=== PATIENT | male | born 1960 | race African-American/Black ===

== ENCOUNTER 2020-01-24 18:43 | Emergency (ER) | payer MEDICAID ==
[~2020-01-24] VITALS: Ht 170.2 cm; Wt 77.5 kg
[~2020-01-24 18:43] MED LIST: ALBU18HF INH; EFAV1TAB PO; GABA800T5 PO; OXYC-307 PO; PROP20TA PO; SILD25TA PO
[2020-01-24] MEDS ORDERED: ALBUTEROL 0.5%, 20ML NPPB SCH (19:30)
[2020-01-24 19:52] LABS: BASOPHILS # (AUTO) 0.07 x10^3/uL (0-0.1); BASOPHILS % (AUTO) 1 % (0-1); EOSINOPHILS # (AUTO) 0.29 x10^3/uL (0-0.4); EOSINOPHILS % (AUTO) 4 % (1-7); LYMPHOCYTES # (AUTO) 2.26 x10^3/uL (1-3.4); LYMPHOCYTES % (AUTO) 32 % (22-44); MD NO; MEAN CORPUSCULAR HGB CONC 32.7 g/dL (33.2-36.2); MEAN CORPUSCULAR VOLUME 91.5 fL (81-97); MEAN PLATELET VOLUME 8.1 fL (7.4-10.4); MONOCYTES % (AUTO) 8 % (2-9); NEUTROPHILS # (AUTO) 3.94 x10^3/uL (1.8-6.8); NEUTROPHILS % (AUTO) 55 % (42-75); PLATELET COUNT 199 x10^3/uL (130-400); RED BLOOD COUNT 5.23 x10^6/uL (4.38-5.82); RED CELL DISTRIBUTION WIDTH 14.9 % (9.4-14.8)
[2020-01-24 20:01] LABS: ALBUMIN 3.7 g/dL (3.4-5.0); ANION GAP 8 mmol/L (5-15); CALCIUM 9.4 mg/dL (8.5-10.1); CHLORIDE 109 mmol/L (98-107)
[2020-01-24 20:06] LABS: ALANINE AMINOTRANSFERASE 100 U/L (12-78); ALKALINE PHOSPHATASE 64 U/L (45-117); BILIRUBIN,TOTAL 0.7 mg/dL (0.2-1.0); CREATININE 1.31 mg/dL (0.7-1.3); TOTAL PROTEIN 7.6 g/dL (6.4-8.2); TROPONIN I < 0.015 ng/mL (0.000-0.045)
[2020-01-24 20:40] VITALS: BP 126/56
[2020-01-24] MEDS ORDERED: ALBUTEROL/IPRATROPIUM 2.5MG/0.5MG, 3 ML ONE (20:43)
[2020-01-24] MEDS ORDERED: POTASSIUM CHLORIDE 20 MEQ TAB.ER.PRT ONE (20:48)
[2020-01-24] MEDS ORDERED: ALBUTEROL SULFATE 2.5 MG/3 ML NPPB ONE (21:00)
[2020-01-24] MEDS ORDERED: POTASSIUM CHLORIDE 20 MEQ TAB.ER.PRT PO ONE (21:00)
[2020-01-24] MEDS ORDERED: IPRATROPIUM 0.5 MG/2.5 ML INHA NPPB ONE (21:00)
== END 2020-01-24 21:30 | disposition home or self-care (01) ==
LOC: ED 21:28
DX: J45.41 Moderate persistent asthma with (acute) exacerbation (principal); R00.0 Tachycardia, unspecified; R06.02 Shortness of breath; Z21 Asymptomatic human immunodeficiency virus [HIV] infection status; Z87.891 Personal history of nicotine dependence
CPT/HCPCS: 36415; 71045; 80053; 83880; 84484; 85025; 93005; 94640; 99285; J7512; J7613; J7644

== ENCOUNTER 2020-01-27 09:17 | Emergency (ER) | payer MEDICAID ==
[~2020-01-27] VITALS: Ht 170.2 cm; Wt 76.8 kg
[2020-01-27] MEDS ORDERED: ALBUTEROL/IPRATROPIUM 2.5MG/0.5MG, 3 ML ONE ×2 (09:51→10:58)
[2020-01-27] MEDS ORDERED: ALBUTEROL/IPRATROPIUM 2.5MG/0.5MG, 3 ML NPPB ONE ×2 (10:00→11:00)
--- NOTE | 2020-01-27 10:02 | NUR ---
PT STATES ASTHMA EXACERBATION, HX OF SAME. PT IN RESPIR DISTRESS, SPEAKING IN FULL SENTANCES, PROTECTING OWN AIRWAY WELL. BREATHING TX INITIATED, PT EDUCATED ON BREATHING TX USE, DEMONSTARTED PROPER USE. PT PLACED ON MONITORS, VSS. CONT TO MONITOR.
[2020-01-27 10:16] LABS: MEAN CORPUSCULAR HEMOGLOBIN 30.6 pg (27.5-34.5); MEAN CORPUSCULAR HGB CONC 33.3 g/dL (33.2-36.2); MEAN CORPUSCULAR VOLUME 91.9 fL (81-97); MEAN PLATELET VOLUME 8.3 fL (7.4-10.4); PLATELET COUNT 221 x10^3/uL (130-400); RED BLOOD COUNT 5.26 x10^6/uL (4.38-5.82); RED CELL DISTRIBUTION WIDTH 14.8 % (9.4-14.8)
[2020-01-27 10:22] LABS: ALBUMIN 3.3 g/dL (3.4-5.0); ANION GAP 8 mmol/L (5-15); CALCIUM 8.9 mg/dL (8.5-10.1); CHLORIDE 109 mmol/L (98-107); CREATININE 1.15 mg/dL (0.7-1.3)
[2020-01-27 10:25] LABS: TROPONIN I < 0.015 ng/mL (0.000-0.045)
[2020-01-27 10:46] LABS: BASOPHILS # (AUTO) 0.03 x10^3/uL (0-0.1); BASOPHILS % (AUTO) 0 % (0-1); EOSINOPHILS # (AUTO) 0.01 x10^3/uL (0-0.4); EOSINOPHILS % (AUTO) 0 % (1-7); LYMPHOCYTES % (AUTO) 15 % (22-44); MD SCAN; MONOCYTES # (AUTO) 0.39 x10^3/uL (0.2-0.8); MONOCYTES % (AUTO) 4 % (2-9); NEUTROPHILS # (AUTO) 7.69 x10^3/uL (1.8-6.8); NEUTROPHILS % (AUTO) 81 % (42-75)
[2020-01-27 10:53] VITALS: BP 138/74
--- NOTE | 2020-01-27 10:53 | NUR ---
PT STATES BREATHING TX EFFECTIVE, STATES HE "FEELS BETTER." PT REMAINS ON MONITORS, VSS. CONT TO MONITOR.
== END 2020-01-27 11:35 | disposition home or self-care (01) ==
LOC: ED 10:09
DX: J43.9 Emphysema, unspecified (principal); R94.31 Abnormal electrocardiogram [ECG] [EKG]; Z87.891 Personal history of nicotine dependence; Z21 Asymptomatic human immunodeficiency virus [HIV] infection status
CPT/HCPCS: 36415; 71045; 80048; 82040; 84484; 85025; 93005; 94640; 99285

== ENCOUNTER 2020-02-05 18:45 | Emergency (ER) | payer MEDICAID ==
[~2020-02-05] VITALS: Ht 180.3 cm; Wt 77.3 kg
--- NOTE | 2020-02-05 19:10 | NUR ---
FIRST CONTACT [facility] PT. PT SITTING UP IN GURNEY, TRIPOD POSITIONING WITH INCREASED RATE AND WORK OF BREATHING. PT SPEAKING IN ~5 WORD SENTENCES WITH FORCED RESPIRATIONS. PT REPORTS ONSET OF SOB TODAY WHILE AT WORK, "I HAVE ASTHMA AND I WORK IN A [employer]". PT DENIES FEVER/CHEST PAIN/EDEMA. REPORTS RECENT ADMIT AT [facility] S/S. BP/SPO2/ECG MONTIORING IN PLACE. SINUS TACH ON MONITOR. IV ESTBALISHED, LABS DRAWN. ERP AT BEDSIDE FOR INITIAL ASSESSMENT.
[2020-02-05] MEDS ORDERED: methylPREDNISolone SOD SUCC 125 MG/2 ML ONE (19:18)
--- NOTE | 2020-02-05 19:25 | NUR ---
PT MEDICATED PER EMAR
[2020-02-05] MEDS ORDERED: ALBUTEROL/IPRATROPIUM 2.5MG/0.5MG, 3 ML ONE (19:29)
[2020-02-05] MEDS ORDERED: methylPREDNISolone SOD SUCC 125 MG/2 ML IM ONE (19:30)
[2020-02-05] MEDS ORDERED: ALBUTEROL/IPRATROPIUM 2.5MG/0.5MG, 3 ML NPPB ONE (19:30)
[2020-02-05 19:31] LABS: BASOPHILS % (AUTO) 1 % (0-1); EOSINOPHILS # (AUTO) 0.42 x10^3/uL (0-0.4); EOSINOPHILS % (AUTO) 6 % (1-7); LYMPHOCYTES # (AUTO) 2.41 x10^3/uL (1-3.4); LYMPHOCYTES % (AUTO) 32 % (22-44); MD NO; MEAN CORPUSCULAR HEMOGLOBIN 30.4 pg (27.5-34.5); MEAN CORPUSCULAR HGB CONC 33.5 g/dL (33.2-36.2); MEAN CORPUSCULAR VOLUME 90.9 fL (81-97); MEAN PLATELET VOLUME 8.2 fL (7.4-10.4); MONOCYTES # (AUTO) 0.46 x10^3/uL (0.2-0.8); MONOCYTES % (AUTO) 6 % (2-9); NEUTROPHILS % (AUTO) 55 % (42-75); PLATELET COUNT 186 x10^3/uL (130-400)
[2020-02-05 19:59] VITALS: BP 121/88
--- NOTE | 2020-02-05 19:59 | NUR ---
PT RELAXED IN GURNEY, EVEN/REGULAR RESPIRATIONS NOTED.PT REPORTS SIGNIFICANT IMPROVEMENT IN SOB/WOB WITH RX & NEB. RR 18-22, SPO2 >90% ON RA.
--- NOTE | 2020-02-05 20:17 | NUR ---
OKAY TO DC PRIOR TO BMP RESULTING PER ERP. DC EDUCATION PROVIDED, PT DEMONSTRATES UNDERSTANDING. PT AMBULATED STEADILY TO DC WITH RN.
[2020-02-05 20:18] LABS: ANION GAP 5 mmol/L (5-15); CHLORIDE 107 mmol/L (98-107); CREATININE 1.71 mg/dL (0.7-1.3)
--- NOTE | 2020-02-05 20:19 | NUR ---
Teodora dixon in [facility] - 02/05/20 at 2019 by JOSÉ REPORT TO DINORAH NUÑEZ WHO ASSUMED CARE OF PT.
== END 2020-02-05 20:19 | disposition home or self-care (01) ==
LOC: ED 20:10
DX: J45.901 Unspecified asthma with (acute) exacerbation (principal); R00.0 Tachycardia, unspecified; I51.7 Cardiomegaly; R94.31 Abnormal electrocardiogram [ECG] [EKG]
CPT/HCPCS: 36415; 71045; 80048; 85025; 93005; 94640; 96372; 99285; J2930

== ENCOUNTER 2020-03-19 16:27 | Inpatient (IN) | payer MEDICAID ==
[~2020-03-19] VITALS: Ht 170.2 cm; Wt 72.1 kg
--- NOTE | 2020-03-19 17:00 | NUR ---
Assumed care of patient. Seen at PCP and told he had a blood clot in his aorta and needed to go straight to ED. NAD. Denies complaints in ED. Will continue to monitor.
[2020-03-19] MEDS ORDERED: SODIUM CHLORIDE FLUSH 10ML SYR IVF ONE (17:30)
[2020-03-19 17:31] LABS: BASOPHILS # (AUTO) 0.03 x10^3/uL (0-0.1); BASOPHILS % (AUTO) 1 % (0-1); EOSINOPHILS # (AUTO) 0.18 x10^3/uL (0-0.4); EOSINOPHILS % (AUTO) 4 % (1-7); LYMPHOCYTES # (AUTO) 2.22 x10^3/uL (1-3.4); LYMPHOCYTES % (AUTO) 44 % (22-44); MD NO; MEAN CORPUSCULAR HEMOGLOBIN 29.8 pg (27.5-34.5); MEAN CORPUSCULAR HGB CONC 32.4 g/dL (33.2-36.2); MEAN PLATELET VOLUME 8.1 fL (7.4-10.4); MONOCYTES # (AUTO) 0.37 x10^3/uL (0.2-0.8); MONOCYTES % (AUTO) 7 % (2-9); NEUTROPHILS % (AUTO) 45 % (42-75); PLATELET COUNT 222 x10^3/uL (130-400); RED BLOOD COUNT 5.43 x10^6/uL (4.38-5.82); RED CELL DISTRIBUTION WIDTH 15.2 % (9.4-14.8)
[2020-03-19 17:37] LABS: PROTHROMBIN TIME 10.6 Seconds (9.6-11.5)
[2020-03-19 17:42] LABS: ALBUMIN 3.5 g/dL (3.4-5.0); ANION GAP 7 mmol/L (5-15); CALCIUM 8.7 mg/dL (8.5-10.1); CHLORIDE 109 mmol/L (98-107)
[2020-03-19 17:46] LABS: ALANINE AMINOTRANSFERASE 77 U/L (12-78); ALKALINE PHOSPHATASE 65 U/L (45-117); BILIRUBIN,TOTAL 0.8 mg/dL (0.2-1.0); CREATININE 1.23 mg/dL (0.7-1.3); TOTAL PROTEIN 6.9 g/dL (6.4-8.2)
[2020-03-19] MEDS ORDERED: BICT1TAB PO (17:49)
--- NOTE | 2020-03-19 17:50 | NUR ---
IV started. VSS. Plan is for admit. No needs.
[2020-03-19] MEDS ORDERED: HEPARIN 25,000 UNITS/250ML PMX 250 ML IV PRN (18:30)
[2020-03-19] MEDS ORDERED: HEPARIN 5,000 UNITS/ML, 1ML IV PRN ×2 (18:30→19:00)
[2020-03-19] MEDS ORDERED: SODIUM CHLORIDE FLUSH 10ML SYR IVF PRN (18:30)
[2020-03-19] MEDS ORDERED: HEPARIN 5,000 UNITS/ML, 1ML IV ONE ×2 (18:30→19:00)
[2020-03-19] MEDS: HEPARIN 25,000 UNITS/250ML PMX 250 ML IV PRN (18:44)
--- NOTE | 2020-03-19 18:50 | NUR ---
Boaz kinney. Verified with Shane Kaiser RN. No other needs.
--- NOTE | 2020-03-19 19:15 | NUR ---
Karyn Narvaez APRN at bedside.
[2020-03-19] MEDS ORDERED: POLYETHYLENE GLYCOL 17 GM PACKET PO PRN (19:30)
[2020-03-19] MEDS ORDERED: ALBUTEROL HFA 90 MCG/SPRAY INH PRN (19:30)
[2020-03-19] MEDS ORDERED: ACETAMINOPHEN 325 MG TABLET PO PRN (19:30)
[2020-03-19] MEDS ORDERED: MELATONIN 5 MG TABLET PO PRN (19:30)
[2020-03-19] MEDS ORDERED: DIPHENHYDRAMINE 25 MG CAPSULE PO PRN (19:30)
[2020-03-19] MEDS ORDERED: BISACODYL 10 MG SUPP PR PRN (19:30)
[2020-03-19] MEDS ORDERED: hydrALAzine 20 MG/ML, 1ML IVPush PRN (19:30)
[2020-03-19] MEDS ORDERED: ONDANSETRON 2MG/ML, 2ML IVPush PRN (19:30)
[2020-03-19] MEDS ORDERED: morphine SULFATE 10 MG/ML, 1ML IVPush PRN (19:30)
[2020-03-19] MEDS ORDERED: LORazepam 2 MG/ML, 1ML IVPush PRN (19:30)
--- NOTE | 2020-03-19 19:35 | NUR ---
Provided with meal tray. No other needs.
[2020-03-19] MEDS ORDERED: NICOTINE 7 MG/24 HR PATCH.TD24 ONE (19:41)
[2020-03-19] MEDS: NICOTINE 7 MG/24 HR PATCH.TD24 TD SCH (19:43)
--- NOTE | 2020-03-19 20:20 | NUR ---
RN spoke to Karyn Narvaez APRN regarding anti Xa critical value. Since anti-Xa was drawn 1 hours after heparin was hung, she recommended checking with pharmacy. RN called pharmacy who expressed concern over the fact that he had an active clot in his aorta. Pharmacy to call Karyn.
--- NOTE | 2020-03-19 20:26 | NUR ---
Jake from pharmacy spoke to Karyn and they decided to make no changes to the heparin drip at this time. Karyn to put in order for anti-xa to be drawn at 2230 and RN will adjust heparin according at that time.
--- NOTE | 2020-03-19 20:34 | NUR ---
Attempted report. RN unavailable.
--- NOTE | 2020-03-19 20:41 | NUR ---
Report to DINORAH Blanco.
[2020-03-19] MEDS ORDERED: POTASSIUM CHLORIDE 20 MEQ TAB.ER.PRT PO ONE (21:00)
[2020-03-19 21:36] VITALS: BP 135/76
[2020-03-19 21:47] VITALS: BP 135/76
[2020-03-20 00:59] VITALS: BP 132/89
[2020-03-20 07:18] VITALS: BP 116/75
[2020-03-20 07:44] LABS: MEAN CORPUSCULAR HEMOGLOBIN 29.9 pg (27.5-34.5); MEAN CORPUSCULAR HGB CONC 32.4 g/dL (33.2-36.2); MEAN CORPUSCULAR VOLUME 92.3 fL (81-97); MEAN PLATELET VOLUME 8.6 fL (7.4-10.4); PLATELET COUNT 184 x10^3/uL (130-400); RED BLOOD COUNT 5.56 x10^6/uL (4.38-5.82); RED CELL DISTRIBUTION WIDTH 15.4 % (9.4-14.8)
[2020-03-20 07:52] LABS: ANION GAP 5 mmol/L (5-15); CALCIUM 8.8 mg/dL (8.5-10.1); CHLORIDE 111 mmol/L (98-107)
[2020-03-20 07:57] LABS: CHOL/HDL RATIO 3.3; CHOLESTEROL, TOTAL 197 mg/dL (140-239); HDL CHOL % 30 % (26-37); HDL CHOLESTEROL (DIRECT) 59 mg/dL (40-60); LDL CHOLESTEROL,CALCULATED 118 mg/dL (54-169); TRIGLYCERIDES 101 mg/dL (50-200); VLDL CHOLESTEROL 20 mg/dL (0-25)
[2020-03-20 08:32] LABS: BASOPHILS # (AUTO) 0.04 x10^3/uL (0-0.1); BASOPHILS % (AUTO) 1 % (0-1); EOSINOPHILS # (AUTO) 0.23 x10^3/uL (0-0.4); EOSINOPHILS % (AUTO) 6 % (1-7); LYMPHOCYTES # (AUTO) 1.95 x10^3/uL (1-3.4); LYMPHOCYTES % (AUTO) 50 % (22-44); MD SCAN; MONOCYTES # (AUTO) 0.33 x10^3/uL (0.2-0.8); MONOCYTES % (AUTO) 9 % (2-9); NEUTROPHILS # (AUTO) 1.38 x10^3/uL (1.8-6.8); NEUTROPHILS % (AUTO) 35 % (42-75)
[2020-03-20] MEDS: BICTEGRAV/EMTRICIT/TENOFOV ALA TAB PO SCH (08:32)
[2020-03-20] MEDS: SENNA/DOCUSATE TABLET PO SCH (08:32)
[2020-03-20 10:45] LABS: INTERNATIONAL NORMALIZED RATIO 0.99 (0.93-1.1); PROTHROMBIN TIME 10.5 Seconds (9.6-11.5)
[2020-03-20 12:31] VITALS: BP 131/83
[2020-03-20] MEDS: WARFARIN 5 MG TABLET PO-COUM SCH (17:17)
[2020-03-20] MEDS ORDERED: WARFARIN 5 MG TABLET PO-COUM SCH (18:00)
[2020-03-20 18:22] LABS: ANA SCREEN NEGATIVE (Negative)
[2020-03-20] MEDS: NICOTINE 7 MG/24 HR PATCH.TD24 TD SCH (20:09)
[2020-03-20 20:26] VITALS: BP 112/71
[2020-03-20] MEDS: HEPARIN 25,000 UNITS/250ML PMX 250 ML IV PRN (22:03)
[2020-03-21 00:40] VITALS: BP 110/76
[2020-03-21 06:34] LABS: INTERNATIONAL NORMALIZED RATIO 1.04 (0.93-1.1)
[2020-03-21 07:30] VITALS: BP 112/73
[2020-03-21] MEDS: BICTEGRAV/EMTRICIT/TENOFOV ALA TAB PO SCH (09:16)
[2020-03-21] MEDS: SENNA/DOCUSATE TABLET PO SCH (09:16)
[2020-03-21 13:49] VITALS: BP 98/64
[2020-03-21] MEDS: WARFARIN 5 MG TABLET PO-COUM SCH (17:14)
[2020-03-21] MEDS: NICOTINE 7 MG/24 HR PATCH.TD24 TD SCH (19:15)
[2020-03-21 20:10] VITALS: BP 119/71
[2020-03-22 01:14] VITALS: BP 111/76
[2020-03-22] MEDS: HEPARIN 25,000 UNITS/250ML PMX 250 ML IV PRN (03:27)
[2020-03-22 06:36] LABS: INTERNATIONAL NORMALIZED RATIO 1.84 (0.93-1.1); PROTHROMBIN TIME 19.6 Seconds (9.6-11.5)
[2020-03-22 07:55] VITALS: BP 128/87
[2020-03-22] MEDS: SENNA/DOCUSATE TABLET PO SCH (08:56)
[2020-03-22] MEDS: BICTEGRAV/EMTRICIT/TENOFOV ALA TAB PO SCH (08:57)
[2020-03-22 12:37] VITALS: BP 114/68
[2020-03-22 14:02] VITALS: BP 116/72
[2020-03-22] MEDS ORDERED: WARFARIN 5 MG TABLET PO-COUM SCH (18:00)
[2020-03-22 18:16] VITALS: BP 120/79
[2020-03-22] MEDS: NICOTINE 7 MG/24 HR PATCH.TD24 TD SCH (20:28)
[2020-03-23 00:51] VITALS: BP 119/77
[2020-03-23 05:05] LABS: INTERNATIONAL NORMALIZED RATIO 3.46 (0.93-1.1); PROTHROMBIN TIME 37.1 Seconds (9.6-11.5)
[2020-03-23 08:25] VITALS: BP 116/74
[2020-03-23] MEDS: BICTEGRAV/EMTRICIT/TENOFOV ALA TAB PO SCH (08:39)
[2020-03-23] MEDS: SENNA/DOCUSATE TABLET PO SCH (08:39)
[2020-03-23 13:11] VITALS: BP 116/72
[2020-03-23 19:27] VITALS: BP 121/76
[2020-03-23] MEDS: NICOTINE 7 MG/24 HR PATCH.TD24 TD SCH (21:00)
[2020-03-24 00:14] VITALS: BP 111/73
[2020-03-24 04:44] LABS: INTERNATIONAL NORMALIZED RATIO 3.06 (0.93-1.1); PROTHROMBIN TIME 32.8 Seconds (9.6-11.5)
[2020-03-24] MEDS ORDERED: WARF4TAB PO (07:40)
[2020-03-24] MEDS: BICTEGRAV/EMTRICIT/TENOFOV ALA TAB PO SCH (08:00)
[2020-03-24] MEDS: SENNA/DOCUSATE TABLET PO SCH (08:00)
[2020-03-24 08:32] VITALS: BP 132/80
== END 2020-03-24 10:30 | disposition home or self-care (01) | DRG 301 ==
LOC: ED 17:23 → EDIP 18:25 → 4WST 21:32 → DCLOUNGE 03-24 10:21
PROVIDERS: ADMIT Family Medicine; ATTEND Hospitalist
DX: I74.10 Embolism and thrombosis of unspecified parts of aorta (principal); E87.6 Hypokalemia; F20.9 Schizophrenia, unspecified; F32.9 Major depressive disorder, single episode, unspecified; J43.9 Emphysema, unspecified; J45.20 Mild intermittent asthma, uncomplicated; F14.90 Cocaine use, unspecified, uncomplicated; Z21 Asymptomatic human immunodeficiency virus [HIV] infection status; Z87.891 Personal history of nicotine dependence; Z79.899 Other long term (current) drug therapy; Z79.01 Long term (current) use of anticoagulants
CPT/HCPCS: 36415; 80048; 80053; 80061; 81240; 83735; 85025; 85300; 85301; 85303; 85306; 85520; 85598; 85610; 85613; 85670; 85705; 85730; 85732; 86038; 86146; 86147; 93005; 93306; 93356; G0378; J1644

== ENCOUNTER 2020-09-03 15:51 | Inpatient (IN) | payer MEDICAID ==
[~2020-09-03] VITALS: Ht 170.2 cm; Wt 53.8 kg
[~2020-09-03 15:51] MED LIST changes: +BICT1TAB PO; +WARF4TAB PO
--- NOTE | 2020-09-03 16:05 | NUR ---
pt MARGIE US after being found in his tent by volunteers whom he told thta he had run out of food and was having difficulty walking. pt in no resp. distress. at this time pt has no physical c/o other than he is cold. denies injury no family at bedside. ROB
--- NOTE | 2020-09-03 16:20 | NUR ---
EKG has been to bedside. jose antonio bledsoe applied Maureen MORSE to bedside for eval
--- NOTE | 2020-09-03 16:30 | NUR ---
lab at bedside to draw
--- NOTE | 2020-09-03 16:40 | NUR ---
meal tray delivered
[2020-09-03 16:45] LABS: BASOPHILS % (AUTO) 1 % (0-1); EOSINOPHILS % (AUTO) 1 % (1-7); LYMPHOCYTES % (AUTO) 16 % (22-44); MEAN CORPUSCULAR HEMOGLOBIN 29.7 pg (27.5-34.5); MEAN CORPUSCULAR HGB CONC 34.1 g/dL (33.2-36.2); MEAN PLATELET VOLUME 7.8 fL (7.4-10.4); MONOCYTES % (AUTO) 10 % (2-9); NEUTROPHILS % (AUTO) 73 % (42-75); PLATELET COUNT 238 x10^3/uL (130-400); RED BLOOD COUNT 5.48 x10^6/uL (4.38-5.82); RED CELL DISTRIBUTION WIDTH 14.2 % (9.4-14.8)
[2020-09-03 16:54] LABS: MD NO
[2020-09-03 16:57] LABS: ALBUMIN 2.9 g/dL (3.4-5.0); ANION GAP 7 mmol/L (5-15); CALCIUM 9.4 mg/dL (8.5-10.1); CHLORIDE 103 mmol/L (98-107)
[2020-09-03 17:04] LABS: ALANINE AMINOTRANSFERASE 38 U/L (12-78); ALKALINE PHOSPHATASE 98 U/L (45-117); BILIRUBIN,TOTAL 0.4 mg/dL (0.2-1.0); CREATININE 0.87 mg/dL (0.7-1.3); TOTAL PROTEIN 7.7 g/dL (6.4-8.2); TROPONIN I < 0.015 ng/mL (0.000-0.045)
--- NOTE | 2020-09-03 17:09 | NUR ---
no changes. pt resting. pt has consumed 90% of his meal tray and all fluids
--- NOTE | 2020-09-03 17:36 | NUR ---
pt resting in position of comfort with eyes closed. no apparent distress
--- NOTE | 2020-09-03 17:43 | NUR ---
chart up for MD recheck
--- NOTE | 2020-09-03 17:53 | NUR ---
tech at bedside to attempt amulation
--- NOTE | 2020-09-03 17:58 | NUR ---
pt states that he cannot walk. per tech, pt unable to stand
--- NOTE | 2020-09-03 18:08 | NUR ---
report to Minnie COPELAND
--- NOTE | 2020-09-03 18:16 | NUR ---
REPORT FROM DINORAH ALVARADO. PT RESTING COMFORTABLY IN [facility], [facility] NOTED. PT FAILED AMBULATION WITH TECH, ERP AWARE. AWAITING POC
--- NOTE | 2020-09-03 18:58 | NUR ---
REPORT FROM KIMBERLEE COPELAND.
--- NOTE | 2020-09-03 19:07 | NUR ---
REPORT TO DINORAH CARROLL.
--- NOTE | 2020-09-03 19:33 | NUR ---
PT RESTING IN NAD, VSS. CALL LIGHT WITHIN REACH. FALL PRECAUTIONS IN PLACE.
--- NOTE | 2020-09-03 20:04 | NUR ---
PT TRANSPORTED TO CT.
[2020-09-03] MEDS ORDERED: MORPHINE SULFATE 4 MG/ML, 1ML ONE (21:14)
[2020-09-03] MEDS ORDERED: MORPHINE SULFATE 4 MG/ML, 1ML IVPush ONE (21:30)
[2020-09-03] MEDS ORDERED: SODIUM CHLORIDE 0.9% 1,000ML IVBOLUS ONE (21:30)
--- NOTE | 2020-09-03 21:45 | NUR ---
REPORT TO EARLENE COPELAND.
[2020-09-03 22:02] VITALS: BP 128/80
[2020-09-04 00:11] VITALS: BP 126/77
[2020-09-04] MEDS ORDERED: morphine SULFATE 10 MG/ML, 1ML IVPush ONE (00:30)
[2020-09-04] MEDS: ENOXAPARIN 40 MG/0.4 ML SQ SCH (01:20)
[2020-09-04] MEDS: GABAPENTIN 300 MG CAPSULE PO PRN ×2 (01:25→19:36)
[2020-09-04] MEDS ORDERED: DOCUSATE 100 MG CAPSULE PO PRN (01:30)
[2020-09-04] MEDS ORDERED: LIDODERM 5% PATCH TD PRN (01:30)
[2020-09-04] MEDS ORDERED: MELATONIN 5 MG TABLET PO PRN (01:30)
[2020-09-04] MEDS ORDERED: POLYETHYLENE GLYCOL 17 GM PACKET PO PRN (01:30)
[2020-09-04] MEDS ORDERED: ACETAMINOPHEN 325 MG TABLET PO PRN (01:30)
[2020-09-04] MEDS ORDERED: ONDANSETRON 2MG/ML, 2ML IVPush PRN (01:30)
[2020-09-04] MEDS ORDERED: hydrALAzine 20 MG/ML, 1ML IVPush PRN (01:30)
[2020-09-04 05:46] LABS: ANION GAP 9 mmol/L (5-15); CALCIUM 9.3 mg/dL (8.5-10.1); CHLORIDE 104 mmol/L (98-107); CREATININE 1.02 mg/dL (0.7-1.3)
[2020-09-04] MEDS: morphine SULFATE 10 MG/ML, 1ML IVPush PRN ×4 (06:19→21:10)
[2020-09-04] MEDS ORDERED: GADOTERATE 7.5 MMOL/15 ML VIAL ONE (08:15)
[2020-09-04] MEDS: BICTEGRAV/EMTRICIT/TENOFOV ALA TAB PO SCH (10:07)
[2020-09-04 11:53] LABS: BASOPHILS % (AUTO) 1 % (0-1); EOSINOPHILS % (AUTO) 1 % (1-7); LYMPHOCYTES % (AUTO) 27 % (22-44); MEAN CORPUSCULAR HEMOGLOBIN 29.4 pg (27.5-34.5); MEAN CORPUSCULAR HGB CONC 34.4 g/dL (33.2-36.2); MEAN PLATELET VOLUME 7.9 fL (7.4-10.4); MONOCYTES % (AUTO) 11 % (2-9); NEUTROPHILS % (AUTO) 61 % (42-75); PLATELET COUNT 226 x10^3/uL (130-400); RED BLOOD COUNT 4.95 x10^6/uL (4.38-5.82); RED CELL DISTRIBUTION WIDTH 14.2 % (9.4-14.8)
[2020-09-04 12:08] VITALS: BP 113/69
[2020-09-04 12:14] LABS: MD NO
[2020-09-04] MEDS: LACTATED RINGERS 1,000 ML IV ONE ×2 (13:53→14:24)
[2020-09-04 19:40] VITALS: BP 116/65
[2020-09-05] MEDS: ENOXAPARIN 40 MG/0.4 ML SQ SCH (00:39)
[2020-09-05 01:56] VITALS: BP 108/70
[2020-09-05] MEDS: GABAPENTIN 300 MG CAPSULE PO PRN (04:37)
[2020-09-05] MEDS: morphine SULFATE 10 MG/ML, 1ML IVPush PRN ×3 (04:37→18:20)
[2020-09-05 05:46] LABS: ALBUMIN 2.4 g/dL (3.4-5.0); ANION GAP 5 mmol/L (5-15); CALCIUM 8.8 mg/dL (8.5-10.1); CHLORIDE 104 mmol/L (98-107)
[2020-09-05 05:49] LABS: CREATININE 0.86 mg/dL (0.7-1.3)
[2020-09-05 10:03] VITALS: BP 103/67
[2020-09-05] MEDS: CHOLECALCIFEROL 5,000u TAB PO SCH (10:04)
[2020-09-05] MEDS: ASCORBIC ACID 500 MG TABLET PO SCH ×2 (10:04→18:18)
[2020-09-05] MEDS: MULTIVITS,STRESS FORMULA 1 TABLET PO SCH (10:04)
[2020-09-05] MEDS: BICTEGRAV/EMTRICIT/TENOFOV ALA TAB PO SCH (10:04)
[2020-09-05 13:20] VITALS: BP 112/72
[2020-09-05] MEDS ORDERED: CYANOCOBALAMIN 1,000 MCG/ML, 1ML IM ONE (15:00)
[2020-09-05] MEDS ORDERED: CYANOCOBALAMIN 1,000 MCG/ML, 1ML ONE (18:12)
[2020-09-05 20:29] VITALS: BP 117/78
[2020-09-06] MEDS: ENOXAPARIN 40 MG/0.4 ML SQ SCH (01:30)
[2020-09-06 01:39] VITALS: BP 131/95
[2020-09-06 07:12] VITALS: BP 119/85
[2020-09-06] MEDS: ASCORBIC ACID 500 MG TABLET PO SCH ×2 (08:16→17:31)
[2020-09-06] MEDS: FOLIC ACID 1 MG TABLET PO SCH (08:16)
[2020-09-06] MEDS: morphine SULFATE 10 MG/ML, 1ML IVPush PRN ×3 (08:16→20:52)
[2020-09-06] MEDS: CHOLECALCIFEROL 5,000u TAB PO SCH (08:16)
[2020-09-06] MEDS: MULTIVITS,STRESS FORMULA 1 TABLET PO SCH (08:16)
[2020-09-06] MEDS: BICTEGRAV/EMTRICIT/TENOFOV ALA TAB PO SCH ×2 (08:16→11:15)
[2020-09-06 12:56] VITALS: BP 117/72
[2020-09-06 19:24] VITALS: BP 123/80
[2020-09-07] MEDS: ENOXAPARIN 40 MG/0.4 ML SQ SCH (00:52)
[2020-09-07 00:57] VITALS: BP 136/87
[2020-09-07 06:30] VITALS: BP 116/80
[2020-09-07] MEDS: CHOLECALCIFEROL 5,000u TAB PO SCH (08:12)
[2020-09-07] MEDS: MULTIVITS,STRESS FORMULA 1 TABLET PO SCH (08:12)
[2020-09-07] MEDS: ASCORBIC ACID 500 MG TABLET PO SCH ×2 (08:12→17:05)
[2020-09-07] MEDS: FOLIC ACID 1 MG TABLET PO SCH (08:12)
[2020-09-07] MEDS: morphine SULFATE 10 MG/ML, 1ML IVPush PRN ×4 (08:26→22:57)
[2020-09-07] MEDS: BICTEGRAV/EMTRICIT/TENOFOV ALA TAB PO SCH (11:13)
[2020-09-07 12:07] VITALS: BP 132/84
[2020-09-07 19:14] VITALS: BP 124/80
[2020-09-07] MEDS: GABAPENTIN 300 MG CAPSULE PO PRN (23:20)
[2020-09-08 01:05] VITALS: BP 110/75
[2020-09-08 07:04] VITALS: BP 119/79
[2020-09-08] MEDS: OXYcodone IR 5MG TABLET PO PRN ×2 (08:05→15:12)
[2020-09-08] MEDS: GABAPENTIN 300 MG CAPSULE PO PRN (08:05)
[2020-09-08] MEDS: BICTEGRAV/EMTRICIT/TENOFOV ALA TAB PO SCH (08:05)
[2020-09-08] MEDS: MULTIVITS,STRESS FORMULA 1 TABLET PO SCH (08:05)
[2020-09-08] MEDS: CHOLECALCIFEROL 5,000u TAB PO SCH (08:05)
[2020-09-08] MEDS: FOLIC ACID 1 MG TABLET PO SCH (08:05)
[2020-09-08] MEDS: ASCORBIC ACID 500 MG TABLET PO SCH ×2 (08:05→15:12)
[2020-09-08] MEDS: GABAPENTIN 300 MG CAPSULE PO SCH ×3 (10:30→21:09)
[2020-09-08 12:37] VITALS: BP 126/79
[2020-09-08 19:11] VITALS: BP 134/87
[2020-09-09 00:17] VITALS: BP 131/84
[2020-09-09] MEDS: OXYcodone IR 5MG TABLET PO PRN ×4 (00:22→20:57)
[2020-09-09 07:16] VITALS: BP 114/75
[2020-09-09] MEDS: CHOLECALCIFEROL 5,000u TAB PO SCH (08:04)
[2020-09-09] MEDS: GABAPENTIN 300 MG CAPSULE PO SCH ×3 (08:04→20:56)
[2020-09-09] MEDS: MULTIVITS,STRESS FORMULA 1 TABLET PO SCH (08:04)
[2020-09-09] MEDS: BICTEGRAV/EMTRICIT/TENOFOV ALA TAB PO SCH (08:04)
[2020-09-09] MEDS: FOLIC ACID 1 MG TABLET PO SCH (08:04)
[2020-09-09] MEDS: ASCORBIC ACID 500 MG TABLET PO SCH ×2 (08:04→15:48)
[2020-09-09] MEDS: ENOXAPARIN 40 MG/0.4 ML SQ SCH (08:08)
[2020-09-09 12:30] VITALS: BP 114/71
[2020-09-09 19:26] VITALS: BP 132/88
[2020-09-10 00:50] VITALS: BP 132/85
[2020-09-10 07:03] VITALS: BP 122/86
[2020-09-10] MEDS: ENOXAPARIN 40 MG/0.4 ML SQ SCH (08:23)
[2020-09-10] MEDS: MULTIVITS,STRESS FORMULA 1 TABLET PO SCH (08:23)
[2020-09-10] MEDS: CHOLECALCIFEROL 5,000u TAB PO SCH (08:23)
[2020-09-10] MEDS: BICTEGRAV/EMTRICIT/TENOFOV ALA TAB PO SCH (08:23)
[2020-09-10] MEDS: FOLIC ACID 1 MG TABLET PO SCH (08:23)
[2020-09-10] MEDS: GABAPENTIN 300 MG CAPSULE PO SCH (08:23)
[2020-09-10] MEDS: ASCORBIC ACID 500 MG TABLET PO SCH (08:23)
[2020-09-10] MEDS: OXYcodone IR 5MG TABLET PO PRN (08:30)
[2020-09-10] MEDS ORDERED: GABA300C PO (11:01)
== END 2020-09-10 14:25 | disposition home or self-care (01) | DRG 894 ==
LOC: ED 16:42 → EDIP 20:53 → 3N 21:57 → DCLOUNGE 09-10 14:02
PROVIDERS: ADMIT Family Medicine; ATTEND Hospitalist
DX: G62.9 Polyneuropathy, unspecified (principal); B20 Human immunodeficiency virus [HIV] disease; F15.10 Other stimulant abuse, uncomplicated; F17.210 Nicotine dependence, cigarettes, uncomplicated; S80.211A Abrasion, right knee, initial encounter; Z20.822 Contact with and (suspected) exposure to COVID-19; F20.9 Schizophrenia, unspecified; F43.23 Adjustment disorder with mixed anxiety and depressed mood; G89.29 Other chronic pain; J44.9 Chronic obstructive pulmonary disease, unspecified; M43.13 Spondylolisthesis, cervicothoracic region; J45.909 Unspecified asthma, uncomplicated; M43.16 Spondylolisthesis, lumbar region; M47.816 Spondylosis without myelopathy or radiculopathy, lumbar region; W18.39XA Other fall on same level, initial encounter; M48.02 Spinal stenosis, cervical region; M48.061 Spinal stenosis, lumbar region without neurogenic claudication; Z59.0 Homelessness; Z91.5 Personal history of self-harm; Y93.89 Activity, other specified; Y92.89 Other specified places as the place of occurrence of the external cause; Y99.8 Other external cause status; Z79.899 Other long term (current) drug therapy; Z79.891 Long term (current) use of opiate analgesic; Z79.01 Long term (current) use of anticoagulants; Z82.5 Family history of asthma and other chronic lower respiratory diseases; Z83.6 Family history of other diseases of the respiratory system
CPT/HCPCS: 36415; 70450; 70553; 72125; 72156; 72157; 72158; 80048; 80053; 80069; 82306; 82607; 83036; 83735; 84155; 84165; 84443; 84484; 85025; 86361; 86592; 86803; 87536; 87635; 93005; G0378; A9575; J2270; J3420; J7030; J7120